=== PATIENT | male | born 1940 ===

== ENCOUNTER 2020-06-01 04:52 | Day surgery (SDC) | payer OTHER ==
[2020-05-30 16:49] VITALS: BMI 25.7
[2020-06-01 14:06] VITALS: BP 148/82; PULSE 74
[2020-06-01 17:49] VITALS: TEMP 97.1
== END 2020-06-01 12:45 | disposition home or self-care (01) ==
LOC: JASU-ENDO 04:52
PROVIDERS: ATTEND Internal Medicine Gastroenterology
PROC: 0DB78ZX Excision of Stomach, Pylorus, Via Natural or Artificial Opening Endoscopic, Diagnostic (ICD-10-PCS; 2020-06-01)
PROC: 0DB28ZX Excision of Middle Esophagus, Via Natural or Artificial Opening Endoscopic, Diagnostic (ICD-10-PCS; 2020-06-01)
PROC: 0DB98ZX Excision of Duodenum, Via Natural or Artificial Opening Endoscopic, Diagnostic (ICD-10-PCS; principal; 2020-06-01 11:45)
DX: K31.7 Polyp of stomach and duodenum (principal); I10 Essential (primary) hypertension; K29.50 Unspecified chronic gastritis without bleeding
CPT/HCPCS: 88305-TC; 88342-TC